=== PATIENT | female | born 1990 | race Caucasian/White ===

== ENCOUNTER 2016-09-09 20:38 | Emergency (ER) | payer MEDICAID ==
[~2016-09-09] VITALS: Ht 154.9 cm; Wt 54.6 kg
[~2016-09-09 20:38] MED LIST: BACT800T5 PO
[2016-09-09 21:08] VITALS: BP 132/77; PULSE 70; RESP 16; TEMP 98.8; O2SAT 100
[2016-09-09 22:05] LABS: BLOOD, URINE NEG (NEG); GLUCOSE,URINE NEG (NEG); KETONE, URINE NEG (NEG); NITRITE,URINE NEG (NEG)
[2016-09-09 22:08] LABS: URINE COLOR YELLOW (YELLW/STRAW)
[2016-09-09 22:09] LABS: COMMENT (UR) CULT NOT INDICATED; CULTURE IF INDICATED CULT NOT INDICATED; RBC, URINE 0-2 /hpf (0-3); SQUAMOUS EPITHELIAL CELL URINE 0-5 /hpf (0-5); WBC, URINE 0-2 /hpf (0-5)
[2016-09-09 22:25] VITALS: BP 119/65; PULSE 68; RESP 16; O2SAT 99
[2016-09-09 23:45] VITALS: BP 112/62; PULSE 66; RESP 16; O2SAT 98
[2016-09-10 01:35] VITALS: BP 110/61; PULSE 66; RESP 16; O2SAT 98
[2016-09-10] MEDS ORDERED: CLOT10TR PO (01:54)
--- NOTE | 2016-09-10 01:54 | PD ---
HPI Chief Complaint: Rn Labor And Delivery Problem/Complaint Time Seen by Provider: 01:44 Travel History International Travel<30 days: No Contact w/Intl Traveler<30days: No Traveled to known affect area: No History of Present Illness HPI 36 old female presents to the emergency department for complaint of vaginal discharge times one week and sores in the mouth 2 days. Patient's last menstrual period was August 30 and normal for her. Patient is 4 months . Patient is not breast-feeding. Patient's had no fever chills. Patient denies dysuria frequency or urgency. No flank pain. Patient's had no abnormal vaginal bleeding. Patient is status post and tubal ligation. Patient's had no recent respiratory illness symptoms. Family and child are healthy. Patient did note symptoms after performing oral sex. Patient denies prior history of sexually transmitted disease. PFSH Past Medical History Narrative Medical Ab0 tubal ligation no tobacco use nursing notes reviewed Diminished Hearing: No Immunizations Current: Yes Influenza Vaccination: No ?: Not LMP: 09/05/16 TUBAL : 4 Para: 4 Miscarriage: 0 : 0 Tubal Ligation: Yes Past Surgical History Section: Yes (X4) Gynecologic Surgery: Yes ( C SECTION X 4) Social History Alcohol Use: No Tobacco Use: No Substance Use: No Allergies-Medications (Allergen,Severity, Reaction): Coded Allergies: Stadol (Verified Allergy, Severe, HALLUCINATIONS, 09/09/16) Penicillin (Verified Allergy, Intermediate, hives, 09/09/16) *MDRO Multi-Drug Resistant Organism (Verified Adverse Reaction, Unknown, ) MRSA (arm-07/01/16) Reported Meds & Prescriptions Reported Meds & Active Scripts Active Metrogel Vaginal Gel (Metronidazole Vaginal Gel) 0.75 % Gel 1 Appl VAGINAL HS 5 Days Clotrimazole Pradeep (Clotrimazole) 10 Mg Troc 10 Mg PO 5 TIMES A DAY 7 Days Review of Systems Except as stated in HPI: all other systems reviewed are Neg General / Constitutional: No: Fever, Chills HENT: Positive: Other (mouth soreness), No: Headaches, Congestion Cardiovascular: No: Chest Pain or Discomfort Respiratory: No: Shortness of Breath Gastrointestinal: No: Nausea, Vomiting, Abdominal Pain Genitourinary: Positive: Discharge, No: Urgency, Frequency, Dysuria Musculoskeletal: No: Myalgias, Arthralgias Skin: No Rash Neurologic: No: Weakness Psychiatric: No: Anxiety Hematologic/Lymphatic: No: Lymph Node Enlargement Physical Exam Narrative GENERAL: Well-developed well-nourished female in no acute distress no respiratory distress SKIN: Warm and dry. HEAD: Normocephalic. EYES: No scleral icterus. No injection or drainage. NECK: Supple, trachea midline. No JVD or lymphadenopathy. CARDIOVASCULAR: Regular rate and rhythm without murmurs, gallops, or rubs. RESPIRATORY: Breath sounds equal bilaterally. No accessory muscle use. GASTROINTESTINAL: Abdomen soft, non-tender, nondistended. Pelvic exam: Normal external exam no redness no induration no lesions; speculum exam scant white thin mucous no blood no clots no tissue cervical os closed; bimanual exam no cervical motion tenderness no adnexal mass or tenderness no uterine enlargement. MUSCULOSKELETAL: No cyanosis, or edema. BACK: Nontender without obvious deformity. No CVA tenderness. Data Data Last Documented VS Orders Urinalysis - C+S If Indicated (09/09/16 21:52) Gc And Chlamydia Pcr (09/10/16 01:44) Wet Prep Profile (09/10/16 01:44) Ed Urine Pregnancytest Poc (09/10/16 01:44) Group A Rapid Strep Screen (09/10/16 01:44) Strep Culture (Group A) (09/10/16 02:00) Labs Laboratory Tests Test 09/10/16 01:45 Clue Cells (Wet Prep) PRESENT Vaginal Trichomonas (Wet Prep) NONE SEEN Vaginal Yeast (Wet Prep) NONE SEEN Chlamydia trachomatis DNA NOT DETECTED (PCR) Neisseria gonorrhoeae DNA NOT DETECTED (PCR) MDM Medical Decision Making Medical Screen Exam Complete: Yes Emergency Medical Condition: Yes Medical Record Reviewed: Yes Interpretation(s) UA: wnl wet prep:positive clue cells rsa: negative poc hcg: negative Differential Diagnosis Vaginal discharge, STI, UTI, , pharyngitis, stomatitis, candidiasis Narrative Course Patient with normal urinalysis; wet prep Patient will be given Mycelex pradeep Diagnosis Primary Impression: Vaginal discharge Additional Impressions: Oral candidiasis Vaginosis Referrals: Masonry Installer call for appointment Patient Instructions: General Instructions Additional Instructions: Increase fluid hydration Follow-up with vegetable grower Take medications as prescribed Return to the emergency department for a concerns or change in condition Med/Other Pt SpecificInfo: Prescription(s) given Scripts Metronidazole Vaginal Gel (Metrogel Vaginal Gel)0.75 % Gel1 Appl VAGINAL HS 5 Days Ref 0 Prov:Promise Mcclellan MD 09/10/16 Clotrimazole Pradeep 10 Mg Troc10 Mg PO 5 TIMES A DAY 7 Days Ref 0 Prov:Promise Mcclellan MD 09/10/16 Disposition: DISCHARGE HOME Condition: Pormise Burris MD Sep 10, 2016 01:54 Additional Impressions: Oral candidiasis Vaginosis Referrals: Masonry Installer call for appointment Patient Instructions: General Instructions Additional Instructions: Increase fluid hydration Follow-up with vegetable grower Take medications as prescribed Return to the emergency department for a concerns or change in condition Med/Other Pt SpecificInfo: Prescription(s) given Scripts Metronidazole Vaginal Gel (Metrogel Vaginal Gel)0.75 % Gel1 Appl VAGINAL HS 5 Days Ref 0 Prov:Promise Mcclellan MD 09/10/16 Clotrimazole Pradeep 10 Mg Troc10 Mg PO 5 TIMES A DAY 7 Days Ref 0 Prov:Promise Mcclellan MD 09/10/16 Disposition: DISCHARGE HOME Condition: Promise Burris MD Sep 10, 2016 01:54
[2016-09-10] MEDS ORDERED: METR0.7528 VAGINAL (02:19)
[2016-09-10 02:35] VITALS: BP 111/62; PULSE 68; RESP 16; O2SAT 98
[2016-09-10 09:26] LABS: CHLAMYDIA PCR NOT DETECTED (NOT DETECT); NEISSERIA PCR NOT DETECTED (NOT DETECT)
== END 2016-09-10 02:43 | disposition home or self-care (01) ==
LOC: PHED 20:38
DX: N89.8 Other specified noninflammatory disorders of vagina (principal); B37.0 Candidal stomatitis; N76.0 Acute vaginitis
CPT/HCPCS: 81001; 84703; 87081; 87210; 87491; 87591; 87880; 99283

== ENCOUNTER 2016-12-16 00:26 | Emergency (ER) | payer MEDICAID ==
[~2016-12-16] VITALS: Ht 152.4 cm; Wt 52.6 kg
[~2016-12-16 00:26] MED LIST changes: -BACT800T5 PO; +CLOT10TR PO; +METR0.7528 VAGINAL
[2016-12-16 00:30] VITALS: BP 115/52; PULSE 73; RESP 14; TEMP 98; O2SAT 100
--- NOTE | 2016-12-16 02:11 | PD ---
HPI Chief Complaint: ENT Complaint Time Seen by Provider: 02:05 Travel History International Travel<30 days: No Contact w/Intl Traveler<30days: No Traveled to known affect area: No History of Present Illness HPI The patient is a 26-year-old female who complains of right ear pain and a sore throat for 2 days. She denies any drainage in the ear. She denies any fever. She denies any possibility of . She states she gets hives with penicillin. She denies any ear tenderness, tooth pain or TMJ pain. PFSH Past Medical History Medical History: Denies Significant Hx Diminished Hearing: No Immunizations Current: Yes Tetanus Vaccination: < 5 Years Influenza Vaccination: No ?: Unknown : 4 Para: 4 Miscarriage: 0 : 0 Tubal Ligation: Yes Past Surgical History Section: Yes (X4) Gynecologic Surgery: Yes ( C SECTION X 4) Social History Alcohol Use: No Tobacco Use: No Substance Use: No Allergies-Medications (Allergen,Severity, Reaction): Coded Allergies: Stadol (Verified Allergy, Severe, HALLUCINATIONS, 09/09/16) Penicillin (Verified Allergy, Intermediate, hives, 09/09/16) *MDRO Multi-Drug Resistant Organism (Verified Adverse Reaction, Unknown, ) MRSA (arm-07/01/16) Reported Meds & Prescriptions Reported Meds & Active Scripts Active Review of Systems Except as stated in HPI: all other systems reviewed are Neg Physical Exam Narrative GENERAL: Well-nourished, well-developed patient in slight apparent distress with her right ear pain and sore throat. Her vital signs are normal. SKIN: Focused skin assessment warm/dry. HEAD: Normocephalic. EYES: No scleral icterus. No injection or drainage. NECK: Supple, trachea midline. No JVD or lymphadenopathy. CARDIOVASCULAR: Regular rate and rhythm without murmurs, gallops, or rubs. RESPIRATORY: Breath sounds equal bilaterally. No accessory muscle use. GASTROINTESTINAL: Abdomen soft, non-tender, nondistended. MUSCULOSKELETAL: No cyanosis, or edema. BACK: Nontender without obvious deformity. No CVA tenderness. ENT: The throat shows no erythema, exudate or abscess. The left tympanic membrane is normal. The right tympanic membrane shows a distorted reflex and questionable pus behind the drum. There is no tenderness on the outer ear and no canal inflammation noted on either ear. No TMJ tenderness is present. DENTAL: No loose or chipped teeth. No malocclusion or tenderness of the teeth. Data Data Last Documented VS Vital Signs Date Time Temp Pulse Resp B/P Pulse Ox O2 Delivery O2 Flow Rate FiO2 12/16/16 00:30 98.0 73 14 115/52 100 Room Air MDM Medical Decision Making Medical Screen Exam Complete: Yes Emergency Medical Condition: Yes Medical Record Reviewed: Yes Differential Diagnosis Otitis externa, otitis media, TMJ pain, dental pain, Narrative Course The patient has a right otitis media. Her throat is very unimpressive and this may be a viral pharyngitis. Diagnosis Primary Impression: Otitis media, right Additional Impression: Acute pharyngitis Additional Instructions: The antibiotic is one tablet 3 times daily for 10 days. Follow-up with your primary care physician next week. Med/Other Pt SpecificInfo: Prescription(s) given Scripts Erythromycin Ethylsuccinate 400 Mg [id number] Mg PO Q8H 10 Days Ref 0 Prov:Edmundo Bar MD 12/16/16 Disposition: 01 DISCHARGE HOME Condition: Stable Edmundo Bar MD December 16, 2016 02:11
[2016-12-16 02:15] VITALS: BP 111/70; PULSE 62; RESP 16; O2SAT 98
[2016-12-16] MEDS ORDERED: ERYT400T4 PO (02:55)
[2016-12-16] MEDS ORDERED: ERYTHROMYCIN ETHYLSUCCINATE 400 MG TAB PO ONE (03:00)
[2016-12-16] MEDS ORDERED: ERYTHROMYCIN EC 250 MG TABEC PO ONE (03:15)
== END 2016-12-16 03:05 | disposition home or self-care (01) ==
LOC: PHED 00:26
DX: H66.91 Otitis media, unspecified, right ear (principal); J02.9 Acute pharyngitis, unspecified
CPT/HCPCS: 99282

== ENCOUNTER 2017-02-25 22:12 | Emergency (ER) | payer MEDICAID ==
[~2017-02-25] VITALS: Ht 154.9 cm; Wt 55.6 kg
[~2017-02-25 22:12] MED LIST changes: -CLOT10TR PO; +ERYT400T4 PO; -METR0.7528 VAGINAL
[2017-02-25 22:17] VITALS: BP 125/59; PULSE 67; RESP 18; TEMP 98.2; O2SAT 100
[2017-02-25 22:29] VITALS: BP 125/59; PULSE 67; RESP 18; TEMP 98.2; O2SAT 100
--- NOTE | 2017-02-25 22:38 | PD ---
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 The patient reports a copious amount of foul-smelling vaginal discharge. She also is having lower abdominal pain with sexual intercourse. She is pain-free otherwise. History of bilateral tubal ligation and 4 sections. No other abdominal surgeries. She denies urinary symptoms. No fevers or chills. She is sexually active with one partner and believe she is in a monogamous relationship. PFSH Past Medical History Diminished Hearing: No Immunizations Current: Yes ?: Unknown LMP: LMP 01/24/17 : 4 Para: 4 Miscarriage: 0 : 0 Tubal Ligation: Yes Past Surgical History Section: Yes (X4) Gynecologic Surgery: Yes ( C SECTION X 4) Social History Alcohol Use: No Tobacco Use: No Substance Use: No Allergies-Medications (Allergen,Severity, Reaction): Coded Allergies: Stadol (Verified Allergy, Severe, HALLUCINATIONS, 02/25/17) Penicillin (Verified Allergy, Intermediate, hives, 02/25/17) *MDRO Multi-Drug Resistant Organism (Verified Adverse Reaction, Unknown, ) MRSA (arm-07/01/16) Reported Meds & Prescriptions Reported Meds & Active Scripts Active Erythromycin Ethylsuccinate 400 Mg Tab 400 Mg PO Q8H 10 Days Review of Systems Except as stated in HPI: all other systems reviewed are Neg Physical Exam Narrative GENERAL: Well-developed, well-nourished, comfortable, no apparent distress. SKIN: Focused skin assessment warm/dry. No rash. HEAD: Atraumatic. Normocephalic. EYES: Pupils equal and round. No scleral icterus. No injection or drainage. ENT: Mucous membranes pink and moist. GASTROINTESTINAL: Abdomen soft, non-tender, nondistended. Normal bowel sounds. No hernias. MANAGER FINANCIAL PLANNING: Exam performed in the presence of female nurse. Normal external genitalia. Normal cervix. Moderate amount of whitish/grayish/slight foul- smelling vaginal discharge. No CMT. No adnexal masses or tenderness. PSYCHIATRIC: Appropriate mood and affect; insight and judgment normal. Data Data Last Documented VS Vital Signs Date Time Temp Pulse Resp B/P Pulse Ox O2 Delivery O2 Flow Rate FiO2 02/25/17 22:32 97 18 02/25/17 22:29 98.2 125/59 100 Orders Gc And Chlamydia Pcr (02/25/17 22:34) Wet Prep Profile (02/25/17 22:34) Urinalysis - C+S If Indicated (02/25/17 22:34) Ed Urine Pregnancytest Poc (02/25/17 22:34) Metronidazole (Flagyl) (02/25/17 23:15) Labs Laboratory Tests Test 02/25/17 02/25/17 22:40 22:50 Urine Color YELLOW Urine Turbidity CLEAR Urine pH 6.0 Urine Specific [place] 1.020 Urine Protein NEG mg/dL Urine Glucose (UA) NEG mg/dL Urine Ketones NEG mg/dL Urine Occult Blood NEG Urine Nitrite NEG Urine Bilirubin NEG Urine Leukocyte Esterase NEG Urine RBC 0-2 /hpf Urine WBC 0-2 /hpf Urine Squamous Epithelial 0-5 /hpf Cells Urine Bacteria NONE /hpf Microscopic Urinalysis Comment CULT NOT INDICATED Clue Cells (Wet Prep) PRESENT Vaginal Trichomonas (Wet Prep) NONE SEEN Vaginal Yeast (Wet Prep) NONE SEEN MDM Medical Decision Making Medical Screen Exam Complete: Yes Emergency Medical Condition: Yes Differential Diagnosis BV, Trichomonas, yeast infection, PID, /ectopic , Narrative Course UA is not suggestive of UTI. Urine test is negative. Wet prep is positive for clue cells, negative for yeast, negative for Trichomonas. Patient made aware of all findings. No clinical exam findings to suggest PID. She will be started on Flagyl twice a day. Patient instructed to follow-up with an PHYSICIAN PRACTICE ADMINISTRATOR doctor this week. She was informed on when to return to the emergency department. She verbalizes understanding and agreement with plan. Diagnosis Primary Impression: Bacterial vaginosis Referrals: Satellite Installer 1 week Additional Instructions: Take Flagyl as prescribed. Follow-up with a printing gray cloth tender this week. Return to the emergency department for worsening symptoms or any other concerns. Scripts Metronidazole (Flagyl)500 Mg [id number] Mg PO BID 7 Days Ref 0 Prov:Georges Servin MD 02/25/17 Disposition: 01 DISCHARGE HOME Condition: Stable Georges Servin MD Feb 25, 2017 22:38
[2017-02-25 22:50] LABS: BLOOD, URINE NEG (NEG); GLUCOSE,URINE NEG (NEG); KETONE, URINE NEG (NEG); NITRITE,URINE NEG (NEG)
[2017-02-25 22:55] LABS: COMMENT (UR) CULT NOT INDICATED; CULTURE IF INDICATED CULT NOT INDICATED; RBC, URINE 0-2 /hpf (0-3); SQUAMOUS EPITHELIAL CELL URINE 0-5 /hpf (0-5); URINE COLOR YELLOW (YELLW/STRAW); WBC, URINE 0-2 /hpf (0-5)
[2017-02-25] MEDS ORDERED: METR-1 PO (23:06)
[2017-02-25] MEDS ORDERED: metroNIDAZOLE 500 MG TAB PO ONE (23:15)
[2017-02-25 23:20] VITALS: BP 126/72
[2017-02-26 09:20] LABS: CHLAMYDIA PCR NOT DETECTED (NOT DETECT); NEISSERIA PCR NOT DETECTED (NOT DETECT)
== END 2017-02-25 23:22 | disposition home or self-care (01) ==
LOC: PHED 22:12
DX: N76.0 Acute vaginitis (principal)
CPT/HCPCS: 81001; 84703; 87210; 87491; 87591; 99283

== ENCOUNTER 2017-05-15 15:04 | Emergency (ER) | payer MEDICAID, OTHER ==
[~2017-05-15] VITALS: Ht 154.9 cm; Wt 54.0 kg
[~2017-05-15 15:04] MED LIST changes: +METR-1 PO
[2017-05-15 15:05] VITALS: BP 133/60; PULSE 72; RESP 16; TEMP 98.5; O2SAT 100
[2017-05-15 15:48] LABS: BLOOD, URINE NEG (NEG); GLUCOSE,URINE NEG (NEG); KETONE, URINE NEG (NEG); NITRITE,URINE NEG (NEG)
[2017-05-15 15:58] LABS: URINE COLOR STRAW (YELLW/STRAW)
[2017-05-15 15:59] LABS: COMMENT (UR) CULT NOT INDICATED; CULTURE IF INDICATED CULT NOT INDICATED; RBC, URINE 0-3 /hpf (0-3); SQUAMOUS EPITHELIAL CELL URINE 0-5 /hpf (0-5); WBC, URINE 0-2 /hpf (0-5)
[2017-05-15] MEDS ORDERED: CLIN2CRE VAGINAL (17:01)
--- NOTE | 2017-05-15 17:02 | PD ---
HPI Chief Complaint: Head Of Insight Problem/Complaint Time Seen by Provider: 16:40 Travel History International Travel<30 days: No Contact w/Intl Traveler<30days: No Traveled to known affect area: No History of Present Illness HPI 27 yo F c/o vaginal discharge x 2 days approximately. Prior episodes BV had similar symptoms. No fever/chills. No n/v. No abnormal vaginal bleeding. Severity moderate. Onset gradual. PFSH Past Medical History Medical History: Denies Significant Hx Diminished Hearing: No Immunizations Current: Yes Tetanus Vaccination: < 5 Years Influenza Vaccination: No ?: Not : 4 Para: 4 Miscarriage: 0 : 0 Tubal Ligation: Yes Past Surgical History Section: Yes (X4) Gynecologic Surgery: Yes ( C SECTION X 4) Social History Alcohol Use: No Tobacco Use: No Substance Use: No Allergies-Medications (Allergen,Severity, Reaction): Coded Allergies: butorphanol (Unverified Allergy, Severe, HALLUCINATIONS, 05/15/17) penicillin G (Unverified Allergy, Intermediate, hives, 05/15/17) *MDRO Multi-Drug Resistant Organism (Verified Adverse Reaction, Unknown, 05/15/17) MRSA (arm-07/01/16) Reported Meds & Prescriptions Reported Meds & Active Scripts Active Clindamycin Vaginal Cream (Clindamycin Phosphate) 2% Cream 1 Appl VAGINAL HS Review of Systems Except as stated in HPI: all other systems reviewed are Neg General / Constitutional: No: Fever Gastrointestinal: No: Nausea, Vomiting Physical Exam Narrative GENERAL: 27 yo F, WNWD, NAD SKIN: Warm and dry. HEAD: Atraumatic. Normocephalic. EYES: Pupils equal and round. No scleral icterus. No injection or drainage. ENT: No nasal bleeding or discharge. Mucous membranes pink and moist. NECK: Trachea midline. No JVD. CARDIOVASCULAR: Regular rate and rhythm. RESPIRATORY: No accessory muscle use. Clear to auscultation. Breath sounds equal bilaterally. GASTROINTESTINAL: Abdomen soft, non-tender, nondistended. Hepatic and splenic margins not palpable. MUSCULOSKELETAL: Extremities without clubbing, cyanosis, or edema. No obvious deformities. NEUROLOGICAL: Awake and alert. No obvious cranial nerve deficits. Motor grossly within normal limits. Five out of 5 muscle strength in the arms and legs. Normal speech. PSYCHIATRIC: Appropriate mood and affect; insight and judgment normal. Data Data Last Documented VS Vital Signs Date Time Temp Pulse Resp B/P (MAP) Pulse Ox O2 Delivery O2 Flow Rate FiO2 05/15/17 17:20 05/15/17 17:12 59 14 100 Room Air 05/15/17 15:05 98.5 VS reviewed; 120/51 Orders Orders Urinalysis - C+S If Indicated (05/15/17 15:10) Ed Urine Pregnancytest Poc (05/15/17 15:10) Labs Laboratory Tests Test 05/15/17 15:10 Urine Color STRAW Urine Turbidity CLEAR Urine pH 7.0 Urine Specific [place] 1.010 Urine Protein NEG mg/dL Urine Glucose (UA) NEG mg/dL Urine Ketones NEG mg/dL Urine Occult Blood NEG Urine Nitrite NEG Urine Bilirubin NEG Urine Leukocyte Esterase NEG Urine RBC 0-3 /hpf Urine WBC 0-2 /hpf Urine Squamous Epithelial Cells 0-5 /hpf Microscopic Urinalysis Comment CULT NOT INDICATED MDM Medical Decision Making Medical Screen Exam Complete: Yes Emergency Medical Condition: Yes Medical Record Reviewed: Yes Differential Diagnosis IUP, UTI, ectopic , ov torsion, appendicitis, TOA, cervicitis, BV, Trichomoniasis, ov cyst, hernia, mittelschmerz, pain from menstruation Narrative Course Flagyl script Return precautions discussed UA: no UTI Upreg: negative Diagnosis Primary Impression: Bacterial vaginosis Referrals: Dietetic Assistant 2 days Additional Instructions: You have a choice when it comes to health care, and we are glad that you chose [facility]. Hopefully, we have met your expectations on today's visit. You are welcome to return to [facility] at any time, as we are committed to meeting the health care needs of our community. Med/Other Pt SpecificInfo: Prescription(s) given Scripts Clindamycin Vaginal Cream (Clindamycin Vaginal Cream) 2% Cream 1 APPL VAGINAL HS for Infection, #7 APPL 0 Refills Prov: Kenney Glaser MD 05/15/17 Disposition: 01 DISCHARGE HOME Condition: Stable Kenney Glaser MD May 15, 2017 17:02
[2017-05-15 17:12] VITALS: BP 120/51; PULSE 59; RESP 14; O2SAT 100
== END 2017-05-15 17:22 | disposition home or self-care (01) ==
LOC: PHED 15:04
DX: N76.0 Acute vaginitis (principal)
CPT/HCPCS: 81001; 84703; 99283

== ENCOUNTER 2017-08-11 16:38 | Emergency (ER) | payer MEDICAID ==
[~2017-08-11] VITALS: Ht 175.3 cm; Wt 52.6 kg
[~2017-08-11 16:38] MED LIST changes: +CLIN2CRE VAGINAL; -ERYT400T4 PO; -METR-1 PO
[2017-08-11 16:41] VITALS: BP 129/61; PULSE 72; RESP 16; TEMP 98.1; O2SAT 100
--- NOTE | 2017-08-11 16:53 | PD ---
HPI Chief Complaint: Oral / Dental Pain or Problem Time Seen by Provider: 16:43 Travel History International Travel<30 days: No Contact w/Intl Traveler<30days: No Traveled to known affect area: No History of Present Illness HPI The patient is a 27-year-old female who presents emergency department for today history of right ear pain and right lower jaw pain. The patient states she has a partially avulsed with some tooth and right inferior aspect which is sensitive to heat, cold, mastication. The patient states the pain radiates up to the right ear down the right jaw. She denies any significant swelling over the affected area. She has been advised that she may need wisdom tooth removed in the past. 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 She does note she previously had dental work performed in [place] by a dentist that worked on Sundays, may follow up with a dentist. She denies any fever, chills or sweats. She denies any drainage out of the right ear and denies any difficulty hearing out of the right ear. Symptoms are moderate, possibly exacerbated by dental difficulties, and there are no current alleviating factors. PFSH Past Medical History Diminished Hearing: No Immunizations Current: Yes ?: Not : 4 Para: 4 Miscarriage: 0 : 0 Tubal Ligation: Yes Past Surgical History Section: Yes (X4) Gynecologic Surgery: Yes ( C SECTION X 4) Social History Alcohol Use: No Tobacco Use: No Substance Use: No Allergies-Medications (Allergen,Severity, Reaction): Coded Allergies: butorphanol (Unverified Allergy, Severe, HALLUCINATIONS, 08/11/17) *MDRO Multi-Drug Resistant Organism (Verified Adverse Reaction, Unknown, ) MRSA (arm-07/01/16) Reported Meds & Prescriptions Reported Meds & Active Scripts Active No Active Prescriptions or Reported Medications Review of Systems General / Constitutional: No: Fever HENT: Positive: Dental Difficulties, Earache, No: Neck Pain Gastrointestinal: No: Nausea, Vomiting Skin: No Rash Physical Exam Narrative GENERAL: Awake, alert, pleasant 27-year-old female who appears her stated age and is in no acute respiratory distress. SKIN: Focused skin assessment warm/dry. HEAD: Atraumatic. Normocephalic. EYES: Pupils equal and round. No scleral icterus. No injection or drainage. ENT: No nasal bleeding or discharge. Right tympanic membrane is translucent and right EAC is clear. Inspection the oropharynx reveals partially avulsed tooth #31 which is nontender to palpation. Cavernous. Tooth #32, was noted tooth, which is tender to palpation. No gingival swelling or palpable abscess. NECK: Trachea midline. No JVD. MUSCULOSKELETAL: No obvious deformities. No clubbing. No cyanosis. No edema. NEUROLOGICAL: Awake and alert. No obvious cranial nerve deficits. Motor grossly within normal limits. Normal speech. PSYCHIATRIC: Appropriate mood and affect; insight and judgment normal. Data Data Last Documented VS Vital Signs Date Time Temp Pulse Resp B/P (MAP) Pulse Ox O2 Delivery O2 Flow Rate FiO2 08/11/17 16:41 98.1 72 16 129/61 (83) 100 MDM Medical Decision Making Medical Screen Exam Complete: Yes Emergency Medical Condition: Yes Medical Record Reviewed: Yes Differential Diagnosis Differential diagnoses includes odontalgia, pericoronitis, avulsed tooth, dental fracture, otitis media, eustachian tube dysfunction, serous otitis, otitis externa. Narrative Course The patient appears to have pericoronitis with possible dental cavity of tooth # 32. The patient will be placed on Pen-Vee K and then will be advised to follow- up with a dentist. Diet as tolerated. Return if symptoms worsen or progress. The patient had penicillin G listed as an allergy, I had a discussion with the patient. The patient states her family members are allergic to penicillin G, however, she is had penicillin in the past with no adverse reactions. Therefore , penicillin G was taken off of the allergy list that she states she takes penicillins without difficulty. Patient Instructions: General Instructions Additional Instructions: Medications as directed. Follow-up with a dentist. Diet as tolerated. Over- the-counter Orajel as needed. Med/Other Pt SpecificInfo: Prescription(s) given Scripts Ibuprofen (Ibuprofen) 600 Mg Tab 600 MG PO Q6H Y for Pain/Inflammation, #20 TAB 0 Refills Prov: Juan Carlos Bartholomew MD 08/11/17 Hydrocodone-Acetaminophen ([place]) 5 Mg-325 Mg Tab 1 TAB PO Q6H Y for PAIN, #15 TAB 0 Refills Prov: Juan Carlos Bartholomew MD 08/11/17 Chlorhexidine Gluconate (Mouth) Liq (Peridex Liq) 0.12% Soln 15 ML SWISH-SPIT BID, #473 ML 0 Refills Prov: Juan Carlos Bartholomew MD 08/11/17 Penicillin V Potassium (Penicillin V Potassium) 500 Mg Tab 500 MG PO Q6H for Infection for 10 Days, #40 TAB 0 Refills Prov: Juan Carlos Bartholomew MD 08/11/17 Disposition: 01 DISCHARGE HOME Condition: Stable Juan Carlos Bartholomew MD Aug 11, 2017 16:53
[2017-08-11] MEDS ORDERED: IBUP-232 PO (16:56)
[2017-08-11] MEDS ORDERED: PERI0.126 SWISH-SPIT (16:56)
[2017-08-11] MEDS ORDERED: PENI500T PO (16:56)
[2017-08-11] MEDS ORDERED: NORC5TAB PO (16:56)
== END 2017-08-11 17:15 | disposition home or self-care (01) ==
LOC: PHEFT 16:38
DX: K05.30 Chronic periodontitis, unspecified (principal); H92.01 Otalgia, right ear
CPT/HCPCS: 99284